=== PATIENT | male | born 1945 | race Caucasian/White ===

== ENCOUNTER → 2016-07-07 | Outpatient (CLI) | payer BC ==
[~2016-07-07] MED LIST: ADVIN25050 INH; ALBU18002 INH; ASPI81TA28 PO; GLUCTAB7 PO; PRLSR20 PO; SIMV40TA2 PO
[2016-07-07 12:15] LABS: BASO % 0.7 %; BASO ABS # 0.04 K/uL (0-0.2); COMPLETE YES; EOS % 1.9 %; HEMATOCRIT 46.5 % (42-52); IG% 0.4 %; LYMPH % 23.5 %; LYMPH ABS # 1.26 K/uL (1.2-3.4); MEAN CORPUSCULAR HEMOGLOBIN 30.7 pg (25-34); MEAN CORPUSCULAR HGB CONC 33.8 g/dl (32-36); MEAN PLATELET VOLUME 10.6 fL (7.4-10.4); MONO % 17.5 %; PLATELET COUNT 182 K/uL (130-400); RED BLOOD COUNT 5.11 M/uL (4.7-6.1); WHITE BLOOD COUNT 5.37 K/uL (4.8-10.8)
[2016-07-07 12:38] LABS: ALT/SGPT 33 U/L (12-78); AST/SGOT 26 U/L (15-37); BLOOD UREA NITROGEN 8 mg/dl (7-18); BUN/CREATININE RATIO 9.3 (10-20); CALCIUM 9.1 mg/dl (8.5-10.1); CARBON DIOXIDE 31 mmol/L (21-32); CHLORIDE 103 mmol/L (98-107); CREATININE 0.83 mg/dl (0.60-1.40); GLUCOSE 102 mg/dl (70-99); POTASSIUM 4.2 mmol/L (3.5-5.1); PROSTATE SPECIFIC ANTIGEN 0.918 ng/ml (0.000-4.000); SODIUM 141 mmol/L (136-145)
[2016-07-07 12:41] LABS: CHOLESTEROL 201 mg/dl (0-200); CHOLESTEROL/HDL RATIO 2.1; HDL CHOLESTEROL 96 mg/dl; LDL CHOLESTEROL CALCULATED 91 mg/dl; TRIGLYCERIDES 70 mg/dl (0-150); VERY LOW DENSITY LIPOPROT CALC 14 mg/dl
== END | disposition home or self-care (01) ==
LOC: C.LAB1850 10:20
PROVIDERS: ATTEND Internal Medicine
DX: E78.00 Pure hypercholesterolemia, unspecified (principal); J44.9 Chronic obstructive pulmonary disease, unspecified; N40.0 Benign prostatic hyperplasia without lower urinary tract symptoms

== ENCOUNTER → 2017-02-21 | Outpatient (CLI) | payer BC ==
--- NOTE | 2017-02-21 09:54 | DIAGNOSTIC IMAGING REPORT ---
CT LUNG SCREENING, LOW DOSE WITH COMPUTER-AIDED DETECTION (CAD) CLINICAL HISTORY: COUGH, SMOKING HX COMPARISON STUDY: Chest radiograph August 06, 2012. CT DOSE: 107.65 mGy.cm TECHNIQUE: Low-dose helical CT was acquired without intravenous contrast from lung apices to bases and reconstructed at 2.5 mm every 2 mm. CAD was utilized for this study. A dose lowering technique was utilized adhering to the principles of ALARA. FINDINGS: No enlarged axillary, mediastinal or hilar lymph nodes are present. The size of the heart is normal. No pericardial effusion. There is moderate coronary artery calcification. Central airways are patent. There is no consolidation to suggest pneumonia. There are no suspicious pulmonary nodules. There are a few tiny calcified left lower lobe nodules. There are several calcified left hilar and mediastinal lymph nodes which indicate a prior granulomatous process. Moderate upper lobe predominant emphysema is present. No pneumothorax or pleural effusion is present. Bony thorax and upper abdomen are unremarkable on this unenhanced exam. Right middle lobe and lingular subpleural opacity reflects atelectasis. IMPRESSION: 1. No suspicious pulmonary nodules. Lung-RADS Category 1: Negative. Continue annual lung cancer screening. 2. No acute intrathoracic findings. 3. Moderate centrilobular emphysema CAD FINDINGS: Overall Lung RADS Category: 1 Lung RADS Management Recommendation: Continue annual lung cancer screening. Lung RADS Follow Up Date: 2018-02-21 Lung RADS Nodule ID: Electronically signed by: Jack Akins M.D. 02/21/2017 9:52 AM Dictated Date/Time: 02/21/2017 8:23 AM
== END | disposition home or self-care (01) ==
LOC: C.CTS 07:46
PROVIDERS: ATTEND Physician Assistant
DX: J43.2 Centrilobular emphysema (principal); Z87.891 Personal history of nicotine dependence; Z91.89 Other specified personal risk factors, not elsewhere classified

== ENCOUNTER → 2017-06-11 | Outpatient (CLI) | payer BC ==
[2017-06-11 13:23] LABS: BASO % 0.9 %; BASO ABS # 0.05 K/uL (0-0.2); EOS % 1.5 %; EOS ABS # 0.09 K/uL (0-0.5); HEMOGLOBIN 16.3 g/dL (14.0-18.0); IG# 0.03 K/uL (0.00-0.02); LYMPH % 20.9 %; LYMPH ABS # 1.22 K/uL (1.2-3.4); MEAN CELL VOLUME 89.7 fL (80-100); MEAN CORPUSCULAR HEMOGLOBIN 31.1 pg (25-34); MEAN CORPUSCULAR HGB CONC 34.7 g/dl (32-36); MEAN PLATELET VOLUME 10.4 fL (7.4-10.4); MONO % 13.8 %; MONO ABS # 0.81 K/uL (0.11-0.59); NEUT % 62.4 %; NEUT ABS # 3.65 K/uL (1.4-6.5); PLATELET COUNT 193 K/uL (130-400); RED CELL DISTRIBUTION WIDTH CV 13.2 % (11.5-14.5); RED CELL DISTRIBUTION WIDTH SD 43.7 fL (36.4-46.3); WHITE BLOOD COUNT 5.85 K/uL (4.8-10.8)
[2017-06-11 13:51] LABS: BLOOD UREA NITROGEN 9 mg/dl (7-18); CREATININE 0.82 mg/dl (0.60-1.40); GLUCOSE 94 mg/dl (70-99)
[2017-06-11 13:52] LABS: AST/SGOT 38 U/L (15-37); CALCIUM 9.2 mg/dl (8.5-10.1); CARBON DIOXIDE 30 mmol/L (21-32); POTASSIUM 4.3 mmol/L (3.5-5.1); SODIUM 137 mmol/L (136-145)
[2017-06-11 13:56] LABS: ALT/SGPT 37 U/L (12-78); CHOLESTEROL 203 mg/dl (0-200); LDL CHOLESTEROL CALCULATED 89 mg/dl
== END | disposition home or self-care (01) ==
LOC: C.LAB1850 11:55
PROVIDERS: ATTEND Internal Medicine
DX: N40.0 Benign prostatic hyperplasia without lower urinary tract symptoms (principal); J44.9 Chronic obstructive pulmonary disease, unspecified; E78.00 Pure hypercholesterolemia, unspecified

== ENCOUNTER → 2017-09-19 | Outpatient (CLI) | payer BC ==
[2017-09-19 12:39] LABS: TOTAL PROTEIN 7.6 gm/dl (6.4-8.2)
== END | disposition home or self-care (01) ==
LOC: C.LAB1850 10:53
PROVIDERS: ATTEND Internal Medicine
DX: R74.0 Nonspecific elevation of levels of transaminase and lactic acid dehydrogenase [LDH] (principal)